=== PATIENT | female | born 2000 | race African-American/Black ===

== ENCOUNTER 2021-05-04 19:46 | Emergency (ER) | payer BC, MEDICAID ==
[~2021-05-04] VITALS: Ht 160 cm; Wt 85.0 kg
[~2021-05-04 19:46] MED LIST: RANI-655
[2021-05-04] MEDS ORDERED: IBUPROFEN 600MG TABLET PO STA (22:17)
[2021-05-04 23:30] VITALS: BP 121/69
[2021-05-04] MEDS ORDERED: IBUP-2028 MT (23:39)
== END 2021-05-04 23:50 | disposition home or self-care (01) ==
LOC: ER 19:46
DX: R51.9 Headache, unspecified (principal); M79.601 Pain in right arm; M54.2 Cervicalgia
CPT/HCPCS: 73060; 81025; 99284